=== PATIENT | female | born 1970 | race Caucasian/White ===

== ENCOUNTER 2016-05-12 05:35 | Day surgery (SDC) | payer BC ==
[2016-05-10 11:11] LABS: BASOPHILS % (AUTO) 0.3 % (0.0-2.0); EOSINOPHILS # (AUTO) 0.1 K/uL (0.0-0.4); EOSINOPHILS % (AUTO) 1.6 % (0.0-4.0); HEMOGLOBIN 12.9 g/dL (12.0-16.0); LYMPHOCYTES # (AUTO) 1.7 K/uL (1.0-5.5); LYMPHOCYTES % (AUTO) 37.2 % (20.5-51.5); MEAN CORPUSCULAR HEMOGLOBIN 29 pg (27-31); MEAN CORPUSCULAR HGB CONC 34 % (32-36); MEAN CORPUSCULAR VOLUME 87 fL (79.0-98.0); MONOCYTES # (AUTO) 0.4 K/uL (0.0-1.0); MONOCYTES % (AUTO) 8.8 % (1.7-9.3); NEUTROPHILS # (AUTO) 2.3 K/uL (1.8-7.7); NEUTROPHILS % (AUTO) 52.1 % (40.0-70.0); PLATELET COUNT (AUTO) 235 K/uL (130-430); RED BLOOD CELL COUNT(AUTO) 4.39 MIL/uL (4.2-6.2); RED CELL DISTRIBUTION WIDTH 12.4 % (9.0-15.0); WHITE BLOOD COUNT (AUTO) 4.5 K/uL (4.8-10.8)
[2016-05-10 11:45] LABS: BILIRUBIN,URINE NEGATIVE (NEGATIVE); BLOOD, URINE 2+ (NEGATIVE); CLARITY/URINE CLEAR (CLEAR); COLOR,URINE YELLOW (YELLOW); GLUCOSE,URINE NEGATIVE (NEGATIVE); KETONES,URINE NEGATIVE (NEGATIVE); LEUKOCYTE ESTERASE ,URINE NEGATIVE (NEGATIVE); NITRITE, URINE NEGATIVE (NEGATIVE); PROTEIN URINE NEGATIVE (NEGATIVE); UROBILINOGEN,URINE 0.2 (0.2-1.0)
[2016-05-10 11:56] LABS: BACTERIA,URINE FEW /HPF (None Seen); MUCUS,URINE None Seen /LPF (None Seen); RBC,URINE 0-3 /HPF (0-3); WBC,URINE 0-3 /HPF (0-3)
[~2016-05-12] VITALS: Ht 152.4 cm; Wt 72.6 kg
[~2016-05-12 05:35] MED LIST: FOLI-43; GLYB1.253; PRED2.5T4; SULF500T8 PO
[2016-05-12] MEDS ORDERED: LR 1,000 ML IV.SOLN IV ONE (07:10)
[2016-05-12] MEDS ORDERED: CEFAZOLIN 2 GM IVPB PREMIX 50 ML IV ONE (07:10)
[2016-05-12] MEDS ORDERED: ONDANSETRON HCL 4 MG/2 ML VIAL IVP ONE (07:10)
[2016-05-12] MEDS ORDERED: SEVOFLURANE 15 MIN GAS INH ONE (07:10)
[2016-05-12] MEDS ORDERED: ROCURONIUM BROMIDE 10 MG/ML (ZEMURON) IV ONE (07:10)
[2016-05-12] MEDS ORDERED: KETOROLAC TROMETHAMINE 30 MG VIAL IVP ONE (07:10)
[2016-05-12] MEDS ORDERED: DEXAMETHASONE SOD PHOSPHATE 4 MG/ML VIAL IVP ONE (07:10)
[2016-05-12] MEDS ORDERED: MIDAZOLAM HCL 5 MG/5 ML VIAL IVP ONE (07:10)
[2016-05-12] MEDS ORDERED: NS 1000 ML BAG IV ONE (07:10)
[2016-05-12] MEDS ORDERED: PROPOFOL 200MG/ 20ML VIAL (DIPRIVAN) IV ONE (07:10)
[2016-05-12] MEDS ORDERED: NS IRRIG SOLN 1000 ML IR ONE (07:10)
[2016-05-12] MEDS ORDERED: fentaNYL CITRATE 250 MCG/5 ML AMP IV ONE (07:10)
[2016-05-12] MEDS ORDERED: LR 1,000 ML IV SCH (09:20)
[2016-05-12] MEDS ORDERED: MEPERIDINE HCL/PF 25 MG/ML DISP.SYRIN IVP PRN (09:30)
[2016-05-12] MEDS ORDERED: PROMETHAZINE HCL 25 MG/ML AMP IM PRN (09:30)
[2016-05-12] MEDS ORDERED: HYDROmorphone 1 MG INJ. 1 MG/ML AMPUL IVP PRN (09:30)
[2016-05-12] MEDS ORDERED: HYDROmorphone 2 MG TAB PO PRN (09:30)
[2016-05-12] MEDS ORDERED: HYDROmorphone 2 MG/ML VIAL IVP PRN ×2 (09:30)
[2016-05-12] MEDS ORDERED: ONDANSETRON HCL 4 MG/2 ML VIAL IVP PRN (09:30)
[2016-05-12] MEDS ORDERED: HYDROmorphone 2 MG/ML VIAL ONE (10:22)
[2016-05-12 12:04] VITALS: BP_SYST 96
[2016-05-12] MEDS ORDERED: HYDROmorphone 2 MG TAB ONE (12:24)
== END 2016-05-12 14:20 | disposition home or self-care (01) ==
LOC: SDS 05:35 → SMU 05:35 → SDS 14:20
PROVIDERS: ATTEND Obstetrics & Gynecology
DX: D25.9 Leiomyoma of uterus, unspecified (principal); M06.9 Rheumatoid arthritis, unspecified; E66.01 Morbid (severe) obesity due to excess calories
CPT/HCPCS: 36415; 57000; 58571; 81000; 82962; 84703; 85025; 86886; 86900; 86901; 88307; C1727; J0690; J1100; J1170; J1885; J2250; J2405; J2704; J3010; J7030; J7120; E0190

== ENCOUNTER 2016-06-09 14:40 | Emergency (ER) | payer BC ==
[~2016-06-09] VITALS: Ht 152.4 cm; Wt 70.8 kg
[2016-06-09 14:42] VITALS: BP 124/66; PULSE 91; RESP 20; TEMP 97.9; O2SAT 97
--- NOTE | 2016-06-09 14:50 | NUR ---
Pt placed to ER bed 07 and to gown. Report given to GISELE Grimaldo and Dr. Jaime.
--- NOTE | 2016-06-09 15:02 | NUR ---
Patient is stable. Patient complains of cramping pain to lower abdomen that radiates to back with intermittent sharp pain today. S/P on 05/12/16 laproscopic partial hysterectomy. Four laproscopic incision sites noted to lower abdoment. No drainage noted. Abdomen soft and not distended. denies nausea and vomiting. States had vaginal spotting four days ago, no further incidence of bleeding. No other complaints/injuries per patient or noted. Addendum: 06/09/16 at 1620 by [email or web address] No redness or swelling noted at incision sites.
--- NOTE | 2016-06-09 15:13 | NUR ---
ER at bedside examining patient.
[2016-06-09 15:18] LABS: BASOPHILS % (AUTO) 0.5 % (0.0-2.0); EOSINOPHILS # (AUTO) 0.2 K/uL (0.0-0.4); EOSINOPHILS % (AUTO) 2.3 % (0.0-4.0); HEMATOCRIT 40.3 % (36-48); HEMOGLOBIN 13.6 g/dL (12.0-16.0); LYMPHOCYTES # (AUTO) 1.9 K/uL (1.0-5.5); LYMPHOCYTES % (AUTO) 28.6 % (20.5-51.5); MEAN CORPUSCULAR HEMOGLOBIN 29 pg (27-31); MEAN CORPUSCULAR HGB CONC 34 % (32-36); MEAN CORPUSCULAR VOLUME 86 fL (79.0-98.0); MONOCYTES # (AUTO) 0.5 K/uL (0.0-1.0); MONOCYTES % (AUTO) 7.8 % (1.7-9.3); NEUTROPHILS # (AUTO) 4.1 K/uL (1.8-7.7); NEUTROPHILS % (AUTO) 60.8 % (40.0-70.0); PLATELET COUNT (AUTO) 291 K/uL (130-430); RED CELL DISTRIBUTION WIDTH 12.1 % (9.0-15.0); WHITE BLOOD COUNT (AUTO) 6.8 K/uL (4.8-10.8)
[2016-06-09 15:19] LABS: BILIRUBIN,URINE NEGATIVE (NEGATIVE); BLOOD, URINE 1+ (NEGATIVE); CLARITY/URINE HAZY (CLEAR); COLOR,URINE YELLOW (YELLOW); GLUCOSE,URINE NEGATIVE (NEGATIVE); KETONES,URINE NEGATIVE (NEGATIVE); LEUKOCYTE ESTERASE ,URINE 1+ (NEGATIVE); NITRITE, URINE NEGATIVE (NEGATIVE); PROTEIN URINE NEGATIVE (NEGATIVE); UROBILINOGEN,URINE 0.2 (0.2-1.0)
[2016-06-09 15:21] LABS: CALCIUM 9.3 mg/dL (8.4-11.0); CREATININE 0.74 mg/dL (0.55-1.30); POTASSIUM 3.5 mmol/L (3.5-5.1)
[2016-06-09 15:25] LABS: ALBUMIN 4.2 g/dL (3.4-4.8); TOTAL BILIRUBIN 0.3 mg/dL (0.0-1.0); TOTAL PROTEIN, SERUM 7.9 g/dL (6.4-8.3)
[2016-06-09 15:34] LABS: BACTERIA,URINE FEW /HPF (None Seen); MUCUS,URINE None Seen /LPF (None Seen)
[2016-06-09 16:08] VITALS: BP 105/75; PULSE 84; RESP 17; TEMP 98.1; O2SAT 97
--- NOTE | 2016-06-09 16:08 | NUR ---
Patient given written and verbal discharge instructions and verbalizes understanding. ER MD discussed with patient the results and treatment provided. Patient in stable condition. ID arm band removed. Rx of Pyridium and Macrobid given. Patient educated on pain management and to follow up with PMD in 3 to 5 days. Pain Scale 4/10. Patient states pain is decreasing. Opportunity for questions provided and answered. Addendum: 06/09/16 at 1620 by [email or web address] Patient states will take pain medication at home after going to the pharmacy.
== END 2016-06-09 16:08 | disposition home or self-care (01) ==
LOC: SED 14:40
DX: N39.0 Urinary tract infection, site not specified (principal); R03.0 Elevated blood-pressure reading, without diagnosis of hypertension; E11.9 Type 2 diabetes mellitus without complications; Z90.710 Acquired absence of both cervix and uterus
CPT/HCPCS: 36415; 76856-TC; 80053; 81000-TC; 81025; 85025; 99285

== ENCOUNTER 2020-01-10 19:42 | Emergency (ER) | payer BC, OTHER ==
[~2020-01-10] VITALS: Ht 152.4 cm; Wt 73.9 kg
[2020-01-10 20:15] VITALS: BP_SYST 117
--- NOTE | 2020-01-10 20:15 | NUR ---
Patient to ER bed 4 to gown for evaluation. Side rails up. Report given to KEVIN.
[2020-01-10] MEDS ORDERED: KETOROLAC TROMETHAMINE 30 MG VIAL IVP ONE (20:30)
[2020-01-10] MEDS ORDERED: ONDANSETRON HCL 4 MG/2 ML VIAL IVP ONE (20:30)
--- NOTE | 2020-01-10 20:30 | NUR ---
RECEIVED AND IN ROOM, CALM, ALERT, RESP UNLABORED, SKIN WARM AND DRY. STEADY GAIT, NO DYSPNEA. C/O NAUSEA AND ABD PAIN RLQ X 4 DAYS. DENIES FEVER/CHILLS.
--- NOTE | 2020-01-10 20:35 | NUR ---
DR MEDINA IN TO ASSESS
--- NOTE | 2020-01-10 20:55 | NUR ---
OFF TO CT
[2020-01-10 20:56] LABS: BILIRUBIN,URINE NEGATIVE (NEGATIVE); BLOOD, URINE 3+ (NEGATIVE); CLARITY/URINE CLEAR (CLEAR); COLOR,URINE YELLOW (YELLOW); GLUCOSE,URINE NEGATIVE (NEGATIVE); KETONES,URINE 1+ (NEGATIVE); LEUKOCYTE ESTERASE ,URINE NEGATIVE (NEGATIVE); NITRITE, URINE NEGATIVE (NEGATIVE); PH,URINE 5.5 (5.0-8.0); PROTEIN URINE NEGATIVE (NEGATIVE); UROBILINOGEN,URINE 0.2 (0.2-1.0)
[2020-01-10 21:05] LABS: BACTERIA,URINE None Seen /HPF (None Seen); RBC,URINE 0-3 /HPF (0-3); TRICHOMONAS,URINE None Seen /HPF (None Seen); WBC,URINE NONE SEEN /HPF (0-3); YEAST,URINE None Seen /HPF (None Seen)
[2020-01-10 21:09] LABS: CALCIUM 9.1 mg/dL (8.4-11.0); CREATININE 0.62 mg/dL (0.55-1.30); POTASSIUM 3.8 mmol/L (3.5-5.1)
[2020-01-10 21:15] LABS: ALBUMIN 4.3 g/dL (3.4-4.8); TOTAL BILIRUBIN 0.3 mg/dL (0.0-1.0)
[2020-01-10 21:16] LABS: BASOPHILS # (AUTO) 0.1 K/uL (0.0-0.2); BASOPHILS % (AUTO) 0.7 % (0.0-2.0); EOSINOPHILS # (AUTO) 0.1 K/uL (0.0-0.4); EOSINOPHILS % (AUTO) 1.3 % (0.0-4.0); HEMOGLOBIN 14.6 g/dL (12.0-16.0); LYMPHOCYTES % (AUTO) 36.5 % (20.5-51.5); MEAN CORPUSCULAR HEMOGLOBIN 31 pg (27-31); MEAN CORPUSCULAR HGB CONC 35 % (32-36); MEAN CORPUSCULAR VOLUME 89 fL (79.0-98.0); MONOCYTES # (AUTO) 0.6 K/uL (0.0-1.0); MONOCYTES % (AUTO) 7.7 % (1.7-9.3); NEUTROPHILS # (AUTO) 4.4 K/uL (1.8-7.7); NEUTROPHILS % (AUTO) 53.8 % (40.0-70.0); PLATELET COUNT (AUTO) 278 K/uL (130-430); RED BLOOD CELL COUNT(AUTO) 4.75 MIL/uL (4.2-6.2); RED CELL DISTRIBUTION WIDTH 12.9 % (9.0-15.0); WHITE BLOOD COUNT (AUTO) 8.1 K/uL (4.8-10.8)
[2020-01-10 21:50] VITALS: BP_SYST 119
--- NOTE | 2020-01-10 21:51 | NUR ---
Patient given written and verbal discharge instructions and verbalizes understanding. ER MD discussed with patient the results and treatment provided. Patient in stable condition. ID arm band removed. IV catheter removed intact and dressing applied, no active bleeding. Rx of ZOFRAN given. Patient educated on pain management and to follow up with PMD. Pain Scale 4/10 Opportunity for questions provided and answered. Medication side effect fact sheet provided.
== END 2020-01-10 21:51 | disposition home or self-care (01) ==
LOC: SED 19:42
DX: R10.31 Right lower quadrant pain (principal); E11.9 Type 2 diabetes mellitus without complications; Z79.899 Other long term (current) drug therapy
CPT/HCPCS: 36415; 74176; 76376; 80053; 81000; 85025; 96374; 96375; 99284; J1885; J2405

== ENCOUNTER 2021-11-23 13:44 | Emergency (ER) | payer OTHER ==
[~2021-11-23] VITALS: Ht 152.4 cm; Wt 70.3 kg
[2021-11-23 13:58] VITALS: BP_SYST 130
--- NOTE | 2021-11-23 14:09 | NUR ---
Patient triaged and placed in waiting room. VSS and patient appears in no acute distress at this time. Accompanied by staff, awaiting available bed, and Dr. Marty [place] notified of need for MSE.
--- NOTE | 2021-11-23 15:15 | NUR ---
ER DR. PITTMAN EXAMINING PT
[2021-11-23] MEDS ORDERED: IBUP-1969 PO (16:57)
[2021-11-23] MEDS ORDERED: HYDR-3917 PO (16:57)
[2021-11-23 17:17] VITALS: BP_SYST 122
--- NOTE | 2021-11-23 17:17 | NUR ---
Patient given written and verbal discharge instructions and verbalizes understanding. ER MD discussed with patient the results and treatment provided. Patient in stable condition. ID arm band removed. IV catheter removed intact and dressing applied, no active bleeding. Rx of norco,motrin given. Patient educated on pain management and to follow up with PMD. Pain Scale . Opportunity for questions provided and answered. Medication side effect fact sheet provided.
== END 2021-11-23 17:17 | disposition home or self-care (01) ==
LOC: SED 13:44
DX: S00.03XA Contusion of scalp, initial encounter (principal); M54.2 Cervicalgia; R11.0 Nausea; E11.9 Type 2 diabetes mellitus without complications; Z79.899 Other long term (current) drug therapy; W17.89XA Other fall from one level to another, initial encounter; Y93.89 Activity, other specified; Y92.89 Other specified places as the place of occurrence of the external cause; Y99.8 Other external cause status
CPT/HCPCS: 70450-TC; 72125-TC; 76376; 99284

== ENCOUNTER 2023-02-12 19:40 | Emergency (ER) | payer OTHER ==
[~2023-02-12] VITALS: Ht 152.4 cm; Wt 70.8 kg
[~2023-02-12 19:40] MED LIST changes: +HYDR-3917 PO; +IBUP-1969 PO
[2023-02-12 19:50] VITALS: BP_SYST 128; PULSE 95; RESP 16; TEMP 97.9; O2SAT 98
[2023-02-12] MEDS ORDERED: IBUPROFEN 600 MG TABLET PO ONE (20:15)
[2023-02-12] MEDS ORDERED: LIDOCAINE 2%, 20 ML MDV INJ ONE (20:45)
[2023-02-12] MEDS ORDERED: cephALEXin 500 MG CAPSULE PO ONE (21:15)
[2023-02-12] MEDS ORDERED: HYDR-3917 PO (21:40)
[2023-02-12] MEDS ORDERED: IBUP-1969 PO (21:40)
[2023-02-12] MEDS ORDERED: DICL20GE TP (21:40)
[2023-02-12] MEDS ORDERED: CEPH-548 PO (21:40)
[2023-02-12 21:52] VITALS: BP_SYST 125; PULSE 96; RESP 16; TEMP 98.3; O2SAT 98
== END 2023-02-12 21:52 | disposition home or self-care (01) ==
LOC: SED 19:40
DX: S62.635A Displaced fracture of distal phalanx of left ring finger, initial encounter for closed fracture (principal); S66.195A Other injury of flexor muscle, fascia and tendon of left ring finger at wrist and hand level, initial encounter; Z79.899 Other long term (current) drug therapy; W54.8XXA Other contact with dog, initial encounter; Y93.89 Activity, other specified; Y92.89 Other specified places as the place of occurrence of the external cause; Y99.8 Other external cause status
CPT/HCPCS: 73140; 99284; 64450; J2001; 99283

== ENCOUNTER 2023-02-23 08:09 | Day surgery (SDC) | payer OTHER ==
[2023-02-18 17:39] LABS: BILIRUBIN,URINE NEGATIVE (NEGATIVE); BLOOD, URINE 2+ (NEGATIVE); CLARITY/URINE CLEAR (CLEAR); COLOR,URINE YELLOW (YELLOW); GLUCOSE,URINE NEGATIVE (NEGATIVE); KETONES,URINE NEGATIVE (NEGATIVE); LEUKOCYTE ESTERASE ,URINE NEGATIVE (NEGATIVE); NITRITE, URINE NEGATIVE (NEGATIVE); PROTEIN URINE NEGATIVE (NEGATIVE)
[2023-02-18 17:48] LABS: BACTERIA,URINE RARE /HPF (None Seen); RBC,URINE 0-3 /HPF (0-3); WBC,URINE 0-3 /HPF (0-3)
[2023-02-18 17:49] LABS: BASOPHILS % (AUTO) 0.2 % (0.0-2.0); EOSINOPHILS # (AUTO) 0.1 K/uL (0.0-0.4); EOSINOPHILS % (AUTO) 1.2 % (0.0-4.0); HEMATOCRIT 40.6 % (36-48); HEMOGLOBIN 14.2 g/dL (12.0-16.0); LYMPHOCYTES % (AUTO) 35.6 % (20.5-51.5); MEAN CORPUSCULAR HEMOGLOBIN 31 pg (27-31); MEAN CORPUSCULAR HGB CONC 35 % (32-36); MEAN CORPUSCULAR VOLUME 87 fL (79.0-98.0); MONOCYTES # (AUTO) 0.6 K/uL (0.0-1.0); MONOCYTES % (AUTO) 11.2 % (1.7-9.3); MUCUS,URINE None Seen /LPF (None Seen); NEUTROPHILS % (AUTO) 51.8 % (40.0-70.0); PLATELET COUNT (AUTO) 285 K/uL (130-430); RED BLOOD CELL COUNT(AUTO) 4.65 MIL/uL (4.2-6.2); RED CELL DISTRIBUTION WIDTH 12.8 % (9.0-15.0); WHITE BLOOD COUNT (AUTO) 5.7 K/uL (4.8-10.8)
[2023-02-18 17:58] LABS: PROTHROMBIN TIME 10.2 SECS (9.5-12.5)
[2023-02-18 17:59] LABS: CALCIUM 8.9 mg/dL (8.4-11.0); CREATININE 0.47 mg/dL (0.55-1.30); POTASSIUM 3.5 mmol/L (3.5-5.1); TOTAL BILIRUBIN 0.2 mg/dL (0.0-1.0); TOTAL PROTEIN, SERUM 7.9 g/dL (6.4-8.3)
[~2023-02-23] VITALS: Ht 152.4 cm; Wt 70.8 kg
[~2023-02-23 08:09] MED LIST changes: +CEFAZOLIN SOD 2 GM in D5W 50 ML IV ONE; +CEPH-548 PO; +DICL20GE TP
[2023-02-23] MEDS ORDERED: ONDANSETRON HCL 4 MG/2 ML VIAL ONE (11:00)
[2023-02-23] MEDS ORDERED: SEVOFLURANE 15 MIN GAS INH ONE (11:00)
[2023-02-23] MEDS ORDERED: MIDAZOLAM HCL/PF 2 MG/2 ML SYRINGE ONE (11:00)
[2023-02-23] MEDS ORDERED: BUPIVACAINE /PF 0.25% 30 ML VIAL INJ ONE (11:00)
[2023-02-23] MEDS ORDERED: LR 1,000 ML IV.SOLN IV ONE (11:00)
[2023-02-23] MEDS ORDERED: fentaNYL CITRATE/PF 100 MCG/2 ML AMP ONE (11:00)
[2023-02-23] MEDS ORDERED: WATER FOR IRRIGATION,STERILE 1,000 ML IRRIG.SOLN IR ONE (11:00)
[2023-02-23] MEDS ORDERED: NS IRRIG SOLN 1000 ML IR ONE (11:00)
[2023-02-23] MEDS ORDERED: PROPOFOL 200MG/ 20ML VIAL (DIPRIVAN) IV ONE (11:00)
[2023-02-23] MEDS ORDERED: KETOROLAC TROMETHAMINE 30 MG VIAL ONE (11:00)
[2023-02-23] MEDS ORDERED: DEXAMETHASONE SOD PHOSPHATE 4 MG/ML VIAL ONE (11:00)
[2023-02-23] MEDS ORDERED: ACETAMINOPHEN I.V. 1000 MG 100 ML IV ONE (11:17)
[2023-02-23] MEDS ORDERED: HYDROmorphone 1 MG/ML INJ. CARTRIDGE IVP PRN ×2 (11:45)
[2023-02-23] MEDS ORDERED: MEPERIDINE HCL/PF 25 MG/ML DISP.SYRIN IVP PRN (11:45)
[2023-02-23] MEDS ORDERED: LR 1,000 ML IV SCH (11:45)
[2023-02-23] MEDS ORDERED: MIDAZOLAM HCL 2 MG/2 ML VIAL (VERSED) IVP PRN (11:45)
[2023-02-23] MEDS ORDERED: METOCLOPRAMIDE HCL 10 MG/2 ML VIAL IVP PRN (11:45)
[2023-02-23] MEDS ORDERED: HYDROmorphone 1 MG/ML INJ. CARTRIDGE ONE (13:28)
[2023-02-23 13:46] VITALS: O2SAT 98
[2023-02-23 15:30] VITALS: BP_SYST 124; PULSE 87; RESP 20
== END 2023-02-23 15:30 | disposition home or self-care (01) ==
LOC: SDS 08:09 → SMU 08:09 → SDS 15:30
PROVIDERS: ATTEND Orthopaedic Surgery Sports Medicine
DX: S62.635A Displaced fracture of distal phalanx of left ring finger, initial encounter for closed fracture (principal); E11.65 Type 2 diabetes mellitus with hyperglycemia; R79.1 Abnormal coagulation profile; Z79.01 Long term (current) use of anticoagulants; Z90.710 Acquired absence of both cervix and uterus; W23.0XXA Caught, crushed, jammed, or pinched between moving objects, initial encounter; Y93.89 Activity, other specified; Y92.89 Other specified places as the place of occurrence of the external cause; Y99.8 Other external cause status
CPT/HCPCS: 80053; 81000; 81001; 85025; 85610; 85730; 87081; 36415; 93005; 71046; 26370; 26765; 76000; J3490; J0690; J1100; J1885; J3465; J2405; J2704; J3010; J1170; J7060; J7120; J0131; 81015